=== PATIENT | female | born 1970 ===

== ENCOUNTER 2017-03-28 07:38 | Day surgery (SDC) | payer BC ==
[~2017-03-28 07:38] MED LIST: Lactated Ringers 1,000 ML IV SCH; Lidocaine 1%/Sod Bicarbonate in NS 8.4% 1 ML Syringe PRN; Propofol 200 MG/20 ML SDV ONE; Sodium Chloride 0.9% 10 ML Syringe FLUSH PRN
--- NOTE | 2017-03-28 08:05 | PCM.PREANE ---
Preanesthetic Assessment - Anesthesia/Transfusion/Family Hx Anesthesia History: Prior Anesthesia Reaction (PONV) Family History of Anesthesia Reaction: No Transfusion History: No Prior Transfusion(s) Intubation History: Unknown - Review of Systems General: No Symptoms Pulmonary: No Symptoms Cardiovascular: No Symptoms Gastrointestinal: No Symptoms Neurological: No Symptoms Other: Reports: None - Physical Assessment NPO Status Date: 03/27/17 NPO Status Time: 22:30 Pulse: 61 O2 Sat by Pulse Oximetry: 98 Respiratory Rate: 16 Blood Pressure: 133/70 Temperature: 98.9 C ASA Class: 1 Mental Status: Alert & Oriented x3 Airway Class: Mallampati = 2 Dentition: Reports: Normal Dentition Thyro-Mental Finger Breadths: 3 Mouth Opening Finger Breadths: 3 ROM/Head Extension: Full Lungs: Clear to Auscultation, Normal Respiratory Effort Cardiovascular: Regular Rate, Regular Rhythm - Allergies Allergies/Adverse Reactions: Allergies Allergy/AdvReac Type Severity Reaction Status Date / Time hydrocodone Allergy Itching Verified 03/27/17 12:54 Penicillins Allergy Itching Verified 03/27/17 12:54 - Anesthesia Plan Beta Jossy: Propranolol Med Last Dose Date: 03/27/17 Med Last Dose Time: 22:30 - Acknowledgements Anesthesia Type Planned: MAC Pt an Appropriate Candidate for the Planned Anesthesia: Yes Alternatives and Risks of Anesthesia Discussed w Pt/Guardian: Yes Pt/Guardian Understands and Agrees with Anesthesia Plan: Yes PreAnesthesia Questionnaire HEENT History: Reports: None Cardiovascular History: Reports: Other (See Below) Other Cardiovascular History: PVC's, palpitations Respiratory History: Reports: None Other Respiratory History: exposure to harsh chemicals Gastrointestinal History: Reports: GERD, Hiatal Hernia, Other (See Below) ( Barrettsn esophagus) Other Gastrointestinal History: barretts esophagus, epigastric pain Genitourinary History: Reports: None, Other (See Below) Other Genitourinary History: interstitial cystitis 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: Other (See Below) Other OB/BYN History: Breast reduction Musculoskeletal History: Reports: Neck Pain, Chronic (neck surgery may 09 full ROM noted), Osteoarthritis, Other (See Below) Other Musculoskeletal History: degenerative joint disease, heel pain Neurological History: Reports: Migraines (pt takes beta jossy for migraines), Neuropathy, Peripheral Psychiatric History: Reports: Anxiety, Depression, Other (See Below) Other Psychiatric History: fatigue Endocrine/Metabolic History: Reports: Obesity/BMI 30+ Hematologic History: Reports: None Immunologic History: Reports: None Oncologic (Cancer) History: Reports: None Dermatologic History: Reports: Other (See Below) Other Dermatologic History: ingrown toenails - Past Surgical History Head Surgeries/Procedures: Reports: None HEENT Surgical History: Reports: None Cardiovascular Surgical History: Reports: None Respiratory Surgical History: Reports: None GI Surgical History: Reports: Appendectomy, EGD, Other (See Below) Other GI Surgeries/Procedures: abdominalplasty Female Surgical History: Reports: Hysterectomy Male Surgical History: Reports: None Endocrine Surgical History: Reports: None Neurological Surgical History: Reports: C-Spine Oncologic Surgical History: Reports: None - SUBSTANCE USE Smoking Status *Q: Never Smoker Tobacco Use Within Last Twelve Months: No Second Hand Smoke Exposure: Yes Recreational Drug Use History: No - HOME MEDS Home Medications: Home Meds Propranolol [Inderal LA] 60 mg PO DAILY 04/05/16 [History] Esomeprazole Magnesium [Nexium] 20 mg PO DAILY 03/27/17 [History] buPROPion [Wellbutrin XL] 150 mg PO DAILY 03/27/17 [History] - CURRENT (IN HOUSE) MEDS Current Meds: Current Medications Lactated Ringer's (Ringers, Lactated) 1,000 mls @ 125 mls/hr IV ASDIRECTED STEVE Stop: 03/28/17 23:00 Lidocaine/Sodium Bicarbonate (Buffered Lidocaine 1% In Ns 8.4%) 0.25 ml .XX ONETIME PRN PRN Reason: Prior to IV Start Stop: 03/28/17 18:00 Sodium Chloride (Saline Flush) 10 ml FLUSH ASDIRECTED PRN PRN Reason: Keep Vein Open Stop: 03/28/17 18:00 Discontinued Medications Propofol (Diprivan 20 Ml) Confirm Administered Dose 200 mg .ROUTE .STK-MED ONE Stop: 03/28/17 07:28
--- NOTE | 2017-03-28 08:55 | PCM48HPAN ---
Post Anesthesia Note - EVALUATION WITHIN 48HRS OF ANESTHETIC Vital Signs in Normal Range: Yes Patient Participated in Evaluation: Yes Respiratory Function Stable: Yes Airway Patent: Yes Cardiovascular Function Stable: Yes Hydration Status Stable: Yes Pain Control Satisfactory: Yes Nausea and Vomiting Control Satisfactory: Yes Mental Status Recovered: Yes
--- NOTE | 2017-03-28 09:02 | PCM.OPNOTE ---
- General Post-Op/Procedure Note Date of Surgery/Procedure: 03/28/17 Operative Procedure(s): Esophagogastroduodenoscopy with distal esophageal biopsy and gastric polypectomy Findings: 1. Moderate size type I sliding hiatal hernia, with the GE junction at 28 cm from the incisors 2. Short segment linear Benoit's esophagus without erosions or ulcerations extending 1-2 cm cephalad. No stricturing was present. 3. Fundic and body of the stomach glandular polyposis Pre Op Diagnosis: History of short segment Benoit's with chronic GERD Post-Op Diagnosis: 1. Type I sliding hiatal hernia. 2. Endoscopic short segment Benoit's esophagus uncomplicated. 3. Gastric polyposis Anesthesia Technique: MAC, Moderate Sedation Primary Surgeon: Pool Napoles Pathology: 1. Gastric polyp 2. Distal esophageal biopsy EBL in mLs: 0 Complications: None Condition: Good Free Text/Narrative:: After adequate IV sedation and analgesia was obtained with monitoring the patient was placed on her left side. Through a bite-block lubricated upper endoscope was inserted into the esophagus and advanced under direct vision with air insufflation as necessary to reach the stomach. Additional air was given here. The scope was advanced towards the antrum and into the pylorus into the second part of the duodenum. The second and first parts of the duodenum were endoscopically normal with no mass lesions or inflammatory changes seen. The scope was withdrawn to the antral area which was unremarkable. I then withdrew the scope to the incisure angularis and in the retroflexed view I could see the moderate size sliding hiatal hernia. Also in this view the fundic region and body of the stomach contained multiple glandular type polyps all of which were less than 5 mm in size. A shipping services sales representative polypectomy was then obtained for histologic evaluation. There were no erosions or ulcerations seen within the body of stomach. The scope was then withdrawn to the GE junction. This structure was at about 28 cm from the incisors. There were 2 linear salmon- colored mucosal changes extending about 1-2 cm in a cephalad direction consistent with endoscopic Benoit's. Biopsy of this area was taken here to look for dysplastic changes. The hiatal hernia was seen in this view as well. The body of the esophagus was unremarkable. On extubation the vocal cords were briefly visualized and were grossly normal. Air was removed as I finished the procedure which she tolerated well. Valving Machine Operator photographs were taken for the patient for the medical record. She tolerated the procedure well and was taken to recovery area in stable condition. There were no procedural complications.
[2017-03-28] MEDS ORDERED: Lidocaine 1% 2 ML ONE ×2 (09:12)
[2017-03-28 09:30] VITALS: BP 110/72
== END 2017-03-28 09:30 | disposition home or self-care (01) ==
LOC: JD.SDS 07:38
PROVIDERS: ATTEND Surgery
DX: K31.7 Polyp of stomach and duodenum (principal); K29.50 Unspecified chronic gastritis without bleeding; K20.9 Esophagitis, unspecified; K44.9 Diaphragmatic hernia without obstruction or gangrene; F32.9 Major depressive disorder, single episode, unspecified; F41.9 Anxiety disorder, unspecified; Z88.0 Allergy status to penicillin; Z88.8 Allergy status to other drugs, medicaments and biological substances; Z79.899 Other long term (current) drug therapy; Z90.49 Acquired absence of other specified parts of digestive tract; Z90.710 Acquired absence of both cervix and uterus
CPT/HCPCS: 43239; J7120; 00740; J2704

== ENCOUNTER 2018-06-11 07:33 | Day surgery (SDC) | payer BC, OTHER ==
[~2018-06-11 07:33] MED LIST changes: +Lidocaine 1%/Sod Bicarbonate in NS 8.4% 1 ML Syringe IDERM PRN; -Lidocaine 1%/Sod Bicarbonate in NS 8.4% 1 ML Syringe PRN; -Propofol 200 MG/20 ML SDV ONE
[2018-06-11] MEDS ORDERED: Ondansetron 4 MG/2 ML SDV ONE (07:53)
[2018-06-11] MEDS ORDERED: ceFAZolin 1 GM Vial ONE (07:53)
[2018-06-11] MEDS ORDERED: Lidocaine 1% 4 ML ONE (07:53)
[2018-06-11] MEDS ORDERED: Sodium Chloride 0.9% 50 ML SDV ONE (07:53)
[2018-06-11] MEDS ORDERED: Lactated Ringers 1,000 ML ONE (07:53)
[2018-06-11] MEDS ORDERED: Rocuronium 50 MG/5 ML Vial ONE (07:53)
[2018-06-11] MEDS ORDERED: Lidocaine 1% with EPINEPHrine 1:100,000 20 ML MDV ONE (07:53)
[2018-06-11] MEDS ORDERED: fentaNYL 250 MCG/5 ML SDV ONE (07:54)
[2018-06-11] MEDS ORDERED: Midazolam 1 MG/ML 2 ML SDV ONE (07:54)
[2018-06-11] MEDS ORDERED: Propofol 200 MG/20 ML SDV ONE ×3 (07:54→09:36)
[2018-06-11] MEDS ORDERED: Metoclopramide 10 MG/2 ML SDV ONE (08:05)
[2018-06-11] MEDS: Lactated Ringers 1,000 ML IV SCH ×2 (08:10→11:21)
[2018-06-11] MEDS ORDERED: Scopolamine 1.5 MG Transdermal Patch TRDERM ONE (09:00)
[2018-06-11] MEDS ORDERED: Ketorolac 30 MG/ML SDV ONE (09:32)
[2018-06-11] MEDS ORDERED: Dexamethasone 4 MG/ML 5 ML MDV ONE (09:33)
[2018-06-11] MEDS ORDERED: Neostigmine Methylsulfate 1 MG/ML 5 ML Syringe ONE (09:48)
[2018-06-11] MEDS ORDERED: Ondansetron 4 MG/2 ML SDV IVPUSH PRN ×2 (09:58→10:32)
[2018-06-11] MEDS ORDERED: traMADol 50 MG Tab PO PRN (09:59)
--- NOTE | 2018-06-11 10:08 | PCM.OPNOTE ---
- General Post-Op/Procedure Note Date of Surgery/Procedure: 06/11/18 Operative Procedure(s): 1. Posterior vaginal repair with perineoplasty. 2. Right labia minora plasty Findings: Patient had a grade 3 rectocele. Mildly hypertrophied right labia minora Pre Op Diagnosis: 1. Symptomatic rectocele. 2. Right labia minora hypertrophy Post-Op Diagnosis: Same Anesthesia Technique: General ET Tube Other Anesthesia Type: Lidocaine quarter percent with epinephrinelocal Primary Surgeon: Chaparro Moreno Secondary Surgeon: Humza Dunham Anesthesia Provider: Georgetet Norton Electrolysis Needle Operator: Filippo West Reason Electrolysis Needle Operator Was Necessary: Retraction, assistance, patient safety, quality of care Role of Electrolysis Needle Operator: Same Fluid Replacement, Intraop: 1,200 EBL in mLs: 25 Complications: None Condition: Good Free Text/Narrative:: Surgery duration: 44 minutes Procedure: The patient is taken to the operating room and placed in a supine position on the operating table. She received 2 g of Ancef preoperatively for infection prophylaxis. She had sequential compression stockings in place for DVT prophylaxis. Patient was administered general endotracheal anesthesia. She' s placed in a dorsal lithotomy position and prepped and draped in the usual fashion. Exam under anesthesia was performed and showed what appeared to be a high grade 3 rectocele. The uppermost portion of the rectocele was identified and was grasped midline with an Allis clamp. The introital area was grasped at approximately the 4:00 and 8:00 positions at the junction of the vaginal and vulvar epithelium. The area of epithelium was then infiltrated with lidocaine quarter percent with epinephrine. A mary-shaped piece of epithelium was removed from the posterior introital and perineal area. The vaginal epithelium was then undermined superiorly to the top of the rectocele. Was then incised midline. With sharp and blunt dissection the epithelium was then dissected off of the underlying vesicovaginal fascia. At this point approximately 5 sutures of 0 Monocryl were placed to reapproximate the lateral supportive tissue midline and reduce the rectocele. The excess epithelium was then excised and the epithelium overlying the rectocele repair was then reapproximated with several short running sutures of 3-0 Monocryl. Perineoplasty was then performed with approximately 3 V-shaped stitches of 0 Monocryl in placed to reapproximate the lateral tissue midline, rebuild the perineum about 1 cm and the vagina approximately 1 cm. The epithelium of the introitus and perineal body was then reapproximated using 3-0 Monocryl in an episiotomy repair fashion. At this time sponge, instrument and needle counts were correct. Right labia minor normal plasty was then performed. The right labia minora was evaluated and compared with the left side. There is noted to be some right labial hypertrophy making it asymmetrical with the left side. The amount of excess labia minora on the right side was then identified and marked with pen. A hemostat was used to compress the tissue along the line of the incision. The resection was an edge resection of the upper aspect of the labia minora. Steer aspect of labia minora is somewhat asymmetrical but was minimally less on the right side than on the left side. This area was not operated on. The excess labia minora was removed on the right side and sutures were placed along the edge of the incision line. 3-0 Monocryl was used and approximately 9 stitches were placed. Hemostasis was confirmed at this time. The posterior vaginal repair closure was again evaluated and found to be intact and dry. The patient was returned to supine position, awakened from general endotracheal anesthesia and was discharged from the operating room in good condition.
--- NOTE | 2018-06-11 10:19 | PCM.POSTAN ---
POST ANESTHESIA ASSESSMENT - MENTAL STATUS Mental Status: Other (Drowsy) - VITAL SIGNS Pulse Rate: 65 SaO2: 99 Resp Rate: 10 Blood Pressure: 96/48 Temperature: 37.2 C - RESPIRATORY Respiratory Status: Respiratory Rate WNL, Airway Patent, O2 Saturation Stable, Supplemental Oxygen - CARDIOVASCULAR CV Status: Pulse Rate WNL, Blood Pressure Stable - GASTROINTESTINAL GI Status: No Symptoms - PAIN Pain Score: 5 - POST OP HYDRATION Hydration Status: Adequate & Stable
--- NOTE | 2018-06-11 10:22 | PCM.PREANE ---
Preanesthetic Assessment - Anesthesia/Transfusion/Family Hx Anesthesia History: Prior Anesthesia Reaction (PONV) Type of Anesthesia Reaction: Excessive Somnolence, Excessive Nausea/Vomiting Family History of Anesthesia Reaction: No Transfusion History: No Prior Transfusion(s) Intubation History: Unknown - Review of Systems General: No Symptoms Pulmonary: No Symptoms Cardiovascular: No Symptoms Gastrointestinal: Other (GERD) Neurological: Other (Cervical neck fusion C5-C7. No pain noted with extension. ) Other: Reports: Depression, Anxiety - Physical Assessment NPO Status Date: 06/10/18 NPO Status Time: 22:00 Pulse: 65 O2 Sat by Pulse Oximetry: 99 Respiratory Rate: 10 Blood Pressure: 96/48 Temperature: 37.2 C Vital Signs: Last Vital Signs Temp 37.2 C 06/11/18 10: Pulse 65 06/11/18 10:19 Resp 10 L 06/11/18 10:19 BP 96/48 L 06/11/18 10:19 Pulse Ox 99 06/11/18 10:19 Height: 1.52 m Weight: 73 kg ASA Class: 2 Mental Status: Alert & Oriented x3 Airway Class: Mallampati = 1 Dentition: Reports: Normal Dentition Thyro-Mental Finger Breadths: 3 Mouth Opening Finger Breadths: 3 ROM/Head Extension: Full Lungs: Clear to Auscultation, Normal Respiratory Effort Cardiovascular: Regular Rate, Regular Rhythm - Lab Values: Laboratory Last Values WBC 8.74 K/mm3 (3.98-10.04) 06/10/18 11:25 RBC 4.57 M/mm3 (3.98-5.22) 06/10/18 11:25 Hgb 13.9 gm/L (11.2-15.7) 06/10/18 11:25 Hct 41.2 % (34.1-44.9) 06/10/18 11:25 MCV 90.2 fl (79.4-94.8) 06/10/18 11:25 MCH 30.4 pg (25.6-32.2) 06/10/18 11:25 MCHC 33.7 g/dl (32.2-35.5) 06/10/18 11:25 RDW Std Deviation 41.6 fL (36.4-46.3) 06/10/18 11:25 Plt Count 422 K/mm3 (182-369) H 06/10/18 11:25 MPV 10.6 fl (9.4-12.3) 06/10/18 11:25 Neut % (Auto) 62.5 % (34.0-71.1) 06/10/18 11:25 Lymph % (Auto) 28.5 % (19.3-51.7) 06/10/18 11:25 [place] % (Auto) 7.3 % (4.7-12.5) 06/10/18 11:25 Eos % (Auto) 1.3 (0.7-5.8) 06/10/18 11:25 Baso % (Auto) 0.3 % (0.1-1.2) 06/10/18 11:25 Neut # (Auto) 5.46 K/mm3 (1.56-6.13) 06/10/18 11:25 Lymph # (Auto) 2.49 K/mm3 (1.18-3.74) 06/10/18 11:25 [place] # (Auto) 0.64 K/mm3 (0.24-0.36) H 06/10/18 11:25 Eos # (Auto) 0.11 K/mm3 (0.04-0.36) 06/10/18 11:25 Baso # (Auto) 0.03 K/mm3 (0.01-0.08) 06/10/18 11:25 Sodium 143 mEq/L (136-145) 06/10/18 11:25 Potassium 3.8 mEq/L (3.5-5.1) 06/10/18 11:25 Chloride 106 mEq/L (98-107) 06/10/18 11:25 Carbon Dioxide 28 mEq/L (21-32) 06/10/18 11:25 Anion Gap 12.8 (5-15) 06/10/18 11:25 BUN 16 mg/dL (7-18) 06/10/18 11:25 Creatinine 0.8 mg/dL (0.55-1.02) 06/10/18 11:25 Est Cr Clr Drug Dosing TNP 06/10/18 11:25 Estimated GFR (MDRD) > 60 mL/min (>60) 06/10/18 11:25 BUN/Creatinine Ratio 20.0 (14-18) H 06/10/18 11:25 Glucose 93 mg/dL (74-106) 06/10/18 11:25 Calcium 8.8 mg/dL (8.5-10.1) 06/10/18 11:25 Total Bilirubin 0.3 mg/dL (0.2-1.0) 06/10/18 11:25 AST 23 U/L (15-37) 06/10/18 11:25 ALT 45 U/L (14-59) 06/10/18 11:25 Alkaline Phosphatase 63 U/L (46-116) 06/10/18 11:25 Total Protein 6.8 g/dl (6.4-8.2) 06/10/18 11:25 Albumin 3.6 g/dl (3.4-5.0) 06/10/18 11:25 Globulin 3.2 gm/dL 06/10/18 11:25 Albumin/Globulin Ratio 1.1 (1-2) 06/10/18 11:25 Urine Color Yellow (Yellow) 06/10/18 11:25 Urine Appearance Clear (Clear) 06/10/18 11:25 Urine pH 6.0 (5.0-8.0) 06/10/18 11:25 Ur Specific [place] 1.025 (1.005-1.030) 06/10/18 11:25 Urine Protein Negative (Negative) 06/10/18 11:25 Urine Glucose (UA) Negative (Negative) 06/10/18 11:25 Urine Ketones Negative (Negative) 06/10/18 11:25 Urine Occult Blood Trace-intact (Negative) H 06/10/18 11:25 Urine Nitrite Negative (Negative) 06/10/18 11:25 Urine Bilirubin Negative (Negative) 06/10/18 11:25 Urine Urobilinogen 1.0 (0.2-1.0) 06/10/18 11:25 Ur Leukocyte Esterase 1+ (Negative) H 06/10/18 11:25 Urine RBC 5-10 /hpf (0-5) H 06/10/18 11:25 Urine WBC 10-20 /hpf (0-5) H 06/10/18 11:25 Ur Epithelial Cells 0-5 /hpf (0-5) 06/10/18 11:25 Urine Bacteria Few /hpf (FEW) 06/10/18 11:25 Urine Mucus Many /hpf (FEW) H 06/10/18 11:25 - Allergies Allergies/Adverse Reactions: Allergies Allergy/AdvReac Type Severity Reaction Status Date / Time Penicillins Allergy Severe Hives; Verified 06/11/18 08:31 Throat Closes hydrocodone Allergy Itching; Verified 06/11/18 08:31 "Skin Crawling" - Acknowledgements Anesthesia Type Planned: General Anesthesia Pt an Appropriate Candidate for the Planned Anesthesia: Yes Alternatives and Risks of Anesthesia Discussed w Pt/Guardian: Yes Pt/Guardian Understands and Agrees with Anesthesia Plan: Yes PreAnesthesia Questionnaire HEENT History: Reports: None Cardiovascular History: Reports: Other (See Below) Other Cardiovascular History: PVC's, palpitations Respiratory History: Reports: None Other Respiratory History: exposure to harsh chemicals Gastrointestinal History: Reports: GERD, Hiatal Hernia, Other (See Below) Other Gastrointestinal History: barretts esophagus, epigastric pain Genitourinary History: Reports: Other (See Below) Other Genitourinary History: interstitial cystitis, UTI EXECUTIVE VP History: Reports: , Spontaneous , Other (See Below) Other OB/BYN History: Breast reduction, pelvic pain, yeast infection Musculoskeletal History: Reports: Arthritis, Neck Pain, Chronic, Osteoarthritis , Other (See Below) Other Musculoskeletal History: degenerative joint disease, heel pain, calcaneal spur, plantar fasciitis Neurological History: Reports: Migraines, Neuropathy, Peripheral Psychiatric History: Reports: Anxiety, Depression, Other (See Below) Other Psychiatric History: fatigue Endocrine/Metabolic History: Reports: Obesity/BMI 30+ Hematologic History: Reports: None Immunologic History: Reports: None Oncologic (Cancer) History: Reports: None Dermatologic History: Reports: Other (See Below) Other Dermatologic History: ingrown toenails, abdominoplasty - Past Surgical History Head Surgeries/Procedures: Reports: None HEENT Surgical History: Reports: None Cardiovascular Surgical History: Reports: None Respiratory Surgical History: Reports: None GI Surgical History: Reports: Appendectomy, EGD, Other (See Below) Other GI Surgeries/Procedures: abdominalplasty Female Surgical History: Reports: Breast Reduction, Hysterectomy Male Surgical History: Reports: None Endocrine Surgical History: Reports: None Neurological Surgical History: Reports: C-Spine Musculoskeletal Surgical History: Reports: Shoulder Surgery Oncologic Surgical History: Reports: None - SUBSTANCE USE Smoking Status *Q: Never Smoker Recreational Drug Use History: No - HOME MEDS Home Medications: Home Meds Propranolol [Inderal LA] 60 mg PO DAILY 04/05/16 [History] Esomeprazole Magnesium [Nexium] 20 mg PO DAILY 03/27/17 [History] Ibuprofen 600 mg PO Q4H PRN #30 tablet 06/11/18 [Rx] - CURRENT (IN HOUSE) MEDS Current Meds: Current Medications Lactated Ringer's (Ringers, Lactated) 1,000 mls @ 125 mls/hr IV ASDIRECTED STEVE Stop: 06/11/18 23:00 Last Admin: 06/11/18 08:10 Dose: 125 mls/hr Lidocaine/Sodium Bicarbonate (Buffered Lidocaine 1% In Ns 8.4%) 0.25 ml IDERM ONETIME PRN PRN Reason: Prior to IV Start Stop: 06/11/18 18:00 Last Admin: 06/11/18 08:10 Dose: 0.25 ml Non-Formulary Medication (Esomeprazole Magnesium [Nexium]) 20 mg PO DAILY [facility] Ondansetron HCl (Zofran) 4 mg IVPUSH Q4H PRN PRN Reason: Nausea Propranolol HCl (Inderal La) 60 mg PO DAILY [facility] Sodium Chloride (Saline Flush) 10 ml FLUSH ASDIRECTED PRN PRN Reason: Keep Vein Open Stop: 06/11/18 18:00 Tramadol HCl (Ultram) 50 mg PO Q4H PRN PRN Reason: Pain Discontinued Medications Cefazolin Sodium (Ancef) Confirm Administered Dose 2 gm .ROUTE .STK-MED ONE Stop: 06/11/18 07:54 Dexamethasone (Dexamethasone) Confirm Administered Dose 20 mg .ROUTE .STK-MED ONE Stop: 06/11/18 09:34 Fentanyl (Sublimaze) Confirm Administered Dose 250 mcg .ROUTE .STK-MED ONE Stop: 06/11/18 07:55 Glycopyrrolate () Confirm Administered Dose 1 mg .ROUTE .STK-MED ONE Stop: 06/11/18 09:49 Lactated Ringer's (Ringers, Lactated) 1,000 mls @ 125 mls/hr IV ASDIRECTED STEVE Stop: 06/11/18 23:00 Lidocaine HCl (Xylocaine-Mpf 1%) Confirm Administered Dose 4 mls @ as directed .ROUTE .STK-MED ONE Stop: 06/11/18 07:54 Lactated Ringer's (Ringers, Lactated) Confirm Administered Dose 1,000 mls @ as directed .ROUTE .STK-MED ONE Stop: 06/11/18 07:54 Ketorolac Tromethamine (Toradol) Confirm Administered Dose 30 mg .ROUTE .STK- MED ONE Stop: 06/11/18 09:33 Lidocaine/Epinephrine (Xylocaine 1% With Epinephrine 1:100,000) Confirm Administered Dose 20 ml .ROUTE .STK-MED ONE Stop: 06/11/18 07:54 Last Admin: 06/11/18 09:10 Dose: 4.25 ml Lidocaine/Sodium Bicarbonate (Buffered Lidocaine 1% In Ns 8.4%) 0.25 ml IDERM ONETIME PRN PRN Reason: Prior to IV Start Stop: 06/11/18 18:00 Metoclopramide HCl (Reglan) Confirm Administered Dose 10 mg .ROUTE .STK-MED ONE Stop: 06/11/18 08:06 Midazolam HCl (Versed 1 Mg/Ml) Confirm Administered Dose 2 mg .ROUTE .STK-MED ONE Stop: 06/11/18 07:55 Neostigmine Methylsulfate (Neostigmine) Confirm Administered Dose 5 mg .ROUTE .STK-MED ONE Stop: 06/11/18 09:49 Ondansetron HCl (Zofran) Confirm Administered Dose 4 mg .ROUTE .STK-MED ONE Stop: 06/11/18 07:54 Propofol (Diprivan 20 Ml) Confirm Administered Dose 400 mg .ROUTE .STK-MED ONE Stop: 06/11/18 07:55 Propofol (Diprivan 20 Ml) Confirm Administered Dose 400 mg .ROUTE .STK-MED ONE Stop: 06/11/18 07:56 Propofol (Diprivan 20 Ml) Confirm Administered Dose 400 mg .ROUTE .STK-MED ONE Stop: 06/11/18 09:37 Rocuronium [place] (Zemuron) Confirm Administered Dose 50 mg .ROUTE .STK-MED ONE Stop: 06/11/18 07:54 Scopolamine (Transderm-Scop) 1.5 mg TRDERM ONETIME ONE Stop: 06/11/18 09:01 Last Admin: 06/11/18 08:20 Dose: 1.5 mg Sodium Chloride (Saline Flush) 10 ml FLUSH ASDIRECTED PRN PRN Reason: Keep Vein Open Stop: 06/11/18 18:00 Sodium Chloride (Normal Saline) Confirm Administered Dose 50 ml .ROUTE .[employer] ONE Stop: 06/11/18 07:54 Last Admin: 06/11/18 09:10 Dose: 12.75 ml
[2018-06-11] MEDS ORDERED: fentaNYL 100 MCG/2 ML SDV IVPUSH PRN (10:32)
[2018-06-11] MEDS ORDERED: HYDROmorphone 0.5 MG/0.5 ML Syringe IVPUSH PRN (10:32)
[2018-06-11] MEDS ORDERED: Acetaminophen/oxyCODONE 325-5 MG Tab PO PRN (10:54)
[2018-06-11] MEDS ORDERED: Lidocaine 2% Jelly 10 ML Urojet MUCMEM ONE (10:55)
[2018-06-11 14:39] VITALS: BP 122/60
[2018-06-12] MEDS ORDERED: Pantoprazole 40 MG Tab.CR PO SCH (09:00)
[2018-06-12] MEDS ORDERED: Propranolol 60 MG Cap.ER PO SCH (09:00)
== END 2018-06-11 14:04 | disposition home or self-care (01) ==
LOC: JD.SDS 07:33
PROVIDERS: ATTEND Obstetrics & Gynecology
DX: N81.6 Rectocele (principal); N90.60 Unspecified hypertrophy of vulva; N81.10 Cystocele, unspecified; N30.10 Interstitial cystitis (chronic) without hematuria; K21.9 Gastro-esophageal reflux disease without esophagitis; F41.9 Anxiety disorder, unspecified; F32.9 Major depressive disorder, single episode, unspecified; G43.909 Migraine, unspecified, not intractable, without status migrainosus; M13.0 Polyarthritis, unspecified; M47.812 Spondylosis without myelopathy or radiculopathy, cervical region; E66.9 Obesity, unspecified; Z68.32 Body mass index [BMI] 32.0-32.9, adult; Z88.0 Allergy status to penicillin; Z88.5 Allergy status to narcotic agent; Z90.710 Acquired absence of both cervix and uterus; Z79.899 Other long term (current) drug therapy
CPT/HCPCS: 15839; 36415; 57250; 80053; 81001; 85025; 87086; A9270; J0690; J1100; J1885; J2001; J2250; J2405; J2704; J2710; J2765; J3010; J7120; 00400